=== PATIENT | male | born 1970 | race Caucasian/White ===

== ENCOUNTER 2020-10-26 12:19 | Emergency (ER) | payer MEDICAID ==
[~2020-10-26] VITALS: Ht 180.3 cm; Wt 88.6 kg
[2020-10-26] MEDS ORDERED: LIDOcaine 1% W/epiNEPHrine 1:200,000 10ml vial IJ ONE (13:20)
[2020-10-26] MEDS ORDERED: TETanus/Pertussis (Acell)/Diphther VAC/PF (Tdap-Adult) 0.5ml syringe IMVAC ONE (13:30)
[2020-10-26] MEDS ORDERED: SULF1TAB49 PO (13:40)
[2020-10-26] MEDS ORDERED: CEPH250T PO (14:11)
[2020-10-26 14:38] VITALS: BP 150/92
== END 2020-10-26 14:39 | disposition home or self-care (01) ==
LOC: ER 12:19
DX: L02.411 Cutaneous abscess of right axilla (principal); Z79.2 Long term (current) use of antibiotics; Z20.3 Contact with and (suspected) exposure to rabies
CPT/HCPCS: 10060; 90471; 90715; 99283

== ENCOUNTER 2021-04-09 08:22 | Emergency (ER) | payer MEDICAID ==
[~2021-04-09] VITALS: Ht 180.3 cm; Wt 82.7 kg
[2021-04-09 08:29] VITALS: BP 113/75
[2021-04-09] MEDS ORDERED: PENI250T2 PO (08:38)
[2021-04-09] MEDS ORDERED: NAPR-56 PO (08:38)
== END 2021-04-09 08:50 | disposition home or self-care (01) ==
LOC: ER 08:23
DX: K04.7 Periapical abscess without sinus (principal); K08.89 Other specified disorders of teeth and supporting structures; Z79.2 Long term (current) use of antibiotics; Z79.899 Other long term (current) drug therapy
CPT/HCPCS: 99283